=== PATIENT | female | born 1995 | race Caucasian/White ===

== ENCOUNTER 2016-12-28 15:45 | Emergency (ER) | payer MEDICAID ==
--- NOTE | 2017-01-03 02:33 | ER ---
ADMIT: 12/28/2016 RM/LOC: ER [facility] MR#: [id number] [address] [facility] [address] [place], [place] [id number] KRISTIN MONTOYA [address] [facility] [address] [place] [address] Emergency Room Report SEX: F AGE: 21 : 1995 DATE: 12/28/2016 HISTORY OF PRESENT ILLNESS: The patient is a 21-year-old, who just delivered vaginally a baby girl 3 days ago. She says she has right lower quadrant abdominal pain and with walking is even worse. She has had a fever today, nausea, and some vomiting. No diarrhea. REVIEW OF SYSTEMS: Otherwise negative. She is breast feeding now. MEDICATIONS: She is taking prenatals and ibuprofen. PHYSICAL EXAMINATION: VITAL SIGNS: Blood pressure 111/66 with a heart rate of 94, respirations 18, temp is 98.3, and O2 sats 98%. GENERAL: Mildly anxious. ABDOMEN: Jones point is positive. No McBurney point tenderness. No psoas or Rovsing. There is tenderness right upper and right lower quadrant abdomen. No pelvic exam done at this time. SKIN: Good color. EXTREMITIES: Well perfused. NEUROLOGIC: Oriented x4. LABORATORY DATA: We did do labs on her to try to rule out a possibility of an appendicitis. Her WBC is 21.6 with a platelet count that is normal. Her hemoglobin is 10.6, and hematocrit is 32.6. Her CMP has a chloride of [address] of the abdomen does not show any pathology. Ultrasound of the gallbladder even though she had liver enzymes normal shows more than 20 small stones about 5 mm in diameter with a positive Jones sign, and the duct is not blocked. CLINICAL IMPRESSION: 1. Right upper quadrant abdominal pain. 2. Cholelithiasis. I contacted Dr. Foley ammonia nitrate operator for Dr. Walker. He wants to see her tomorrow, continue the Tylenol for pain control, Zofran for nausea and call in the morning. We gave her some morphine 5 mg IV and some Zofran, which the Zofran was more helpful to her than the Motrin itself. She is breast feeding. The patient verbalized understanding. TYRONE Campos / Endy Power MD / leighton JOB #: [id number] CC: Sarthak Wilson MD, Attending Physician UNKNOWN, Family Physician
== END 2016-12-28 20:40 | disposition home or self-care (01) ==
LOC: ER 15:45
DX: O99.63 Diseases of the digestive system complicating the puerperium (principal); K80.20 Calculus of gallbladder without cholecystitis without obstruction; Z79.899 Other long term (current) drug therapy